=== PATIENT | female | born 1935 | race Asian ===

== ENCOUNTER → 2017-10-06 | Outpatient (CLI) | payer MEDICARE, BC, OTHER ==
[2017-10-06 14:58] LABS: INR 2.22; PROTHROMBIN TIME 25.4 SECONDS (12.4-14.5)
== END ==
LOC: M LAB 14:20
DX: Z79.01 Long term (current) use of anticoagulants (principal)
CPT/HCPCS: 85610

== ENCOUNTER → 2017-11-02 | Outpatient (CLI) | payer MEDICARE, BC, OTHER ==
[2017-11-02 14:45] LABS: INR 2.89; PROTHROMBIN TIME 31.5 SECONDS (12.4-14.5)
== END ==
LOC: M LAB 11:51
DX: Z79.01 Long term (current) use of anticoagulants (principal)
CPT/HCPCS: 85610

== ENCOUNTER → 2018-03-03 | Outpatient (CLI) | payer MEDICARE, BC, OTHER ==
[2018-03-03 10:16] LABS: BASO % 0.7 % (0.0-1.0); EOS # 0.1 10^3/uL (0.0-0.50); EOS % 3.2 % (0.0-3.0); HEMATOCRIT 36.4 % (36.0-47.0); IMMATURE GRANULOCYTE % 0.2 % (0-3.0); MEAN CORPUSCULAR HEMOGLOBIN 30.8 pg (27.0-33.0); MEAN CORPUSCULAR VOLUME 93.3 fl (80.0-96.0); MONO # 0.4 10^3/uL (0.0-0.8); NEUTROPHILS # 2.8 10^3/uL (1.8-7.7); NEUTROPHILS % 62.9 % (36.0-66.0); PLATELET COUNT, AUTOMATED 194 10^3/uL (150-450); WHITE BLOOD COUNT 4.4 10^3/uL (4.0-10.0)
[2018-03-03 11:11] LABS: VITAMIN B12 LEVEL 376 PG/ML (247-911)
[2018-03-03 11:12] LABS: ALBUMIN 3.9 GM/DL (3.2-5.2); ALBUMIN/GLOBULIN RATIO 1.08 (1.00-1.93); ALKALINE PHOSPHATASE 97 U/L (45-117); ALT/SGPT 29 U/L (12-78); ANION GAP 8 MEQ/L (8-16); AST/SGOT 40 U/L (7-37); BILIRUBIN,TOTAL 0.4 MG/DL (0.2-1.0); BLOOD UREA NITROGEN 16 MG/DL (7-18); CARBON DIOXIDE LEVEL 28 MEQ/L (21-32); CHLORIDE LEVEL 111 MEQ/L (98-107); CREATININE FOR GFR 0.76 MG/DL (0.55-1.30); FREE T4 0.95 NG/DL (0.76-1.46); GLOMERULAR FILTRATION RATE > 60.0 (>32); GLUCOSE, FASTING 94 MG/DL (70-100); POTASSIUM SERUM 4.2 MEQ/L (3.5-5.1); SODIUM LEVEL 147 MEQ/L (136-145); TOTAL PROTEIN 7.5 GM/DL (6.4-8.2)
== END ==
LOC: M LAB 09:53
DX: G31.84 Mild cognitive impairment of uncertain or unknown etiology (principal)
CPT/HCPCS: 84443

== ENCOUNTER 2018-10-28 18:13 | Inpatient (IN) | payer MEDICARE, BC, OTHER ==
[~2018-10-28] VITALS: Ht 144.8 cm; Wt 49.9 kg
[~2018-10-28 18:13] MED LIST: *BLDWK3; *MAMMOGRAM; /WARF3TA; /WARF4TA; BABY81CH; CALC600T10; COUMADIN PO; FLAG500T; HCTZ25 PO; HYDR25TA6; HYDROD25 PO; KDUR20 PO; LANO0.252; LANOXIN PO; LESCOL PO; LEVA500T; LOTREL; LOTREL PO; MACROBID PO; POTA20TA2; PROMETRIUM PO; TYLENOLCOD PO; VAGIFEM VAGINALLY; ZETI10TA; ZETIA PO; [UNRECOGNIZED DRUG - OTHER] transderma
[2018-10-28] MEDS ORDERED: AMLO5TAB6 (18:46)
[2018-10-28] MEDS ORDERED: VERA120C PO (18:46)
[2018-10-28] MEDS ORDERED: BENA40TA7 (18:46)
[2018-10-28] MEDS ORDERED: HYDR25TAB (18:46)
[2018-10-28 19:20] LABS: BASO % 0.5 % (0.0-1.0); EOS # 0.1 10^3/uL (0.0-0.50); EOS % 1.8 % (0.0-3.0); HEMATOCRIT 38.3 % (36.0-47.0); HEMOGLOBIN 12.5 g/dl (12.0-15.5); MEAN CORPUSCULAR HGB CONC 32.6 g/dl (32.0-36.5); MEAN CORPUSCULAR VOLUME 91.8 fl (80.0-96.0); MONO # 0.5 10^3/uL (0.0-0.8); MONO % 8.2 % (0.0-5.0); NEUTROPHILS # 4.4 10^3/uL (1.8-7.7); NEUTROPHILS % 73.2 % (36.0-66.0); PLATELET COUNT, AUTOMATED 242 10^3/uL (150-450); RED BLOOD COUNT 4.17 10^6/uL (4.00-5.40)
--- NOTE | 2018-10-28 19:24 | REP ---
CT Head without contrast HISTORY: Dizziness COMPARISON: 07/31/2008 Areas of decreased attenuation are present in the periventricular and subcortical white matter. This represents small-vessel ischemic disease. There is no intraparenchymal hemorrhage, acute infarct, mass or midline shift. The ventricular system and cortical sulci as well as subarachnoid space in the posterior fossa are dilated consistent with moderate volume loss. There is no extra cerebral collection. There is no fracture. The visualized sinuses are clear. IMPRESSION: 1. Small vessel ischemic disease. 2. Moderate volume loss. Electronically Signed by Ector Singer MD 10/28/2018 07:15 P
[2018-10-28] MEDS ORDERED: hydroCHLOROthiazide 25 MG TAB PO ONE (19:30)
[2018-10-28] MEDS ORDERED: amLODIPine 5 MG TAB PO ONE (19:30)
[2018-10-28] MEDS ORDERED: MECLIZINE 25 MG TABLET PO ONE (19:30)
[2018-10-28] MEDS ORDERED: BENAZEPRIL 20 MG TAB PO ONE (19:30)
--- NOTE | 2018-10-28 19:30 | REP ---
CT cervical spine without contrast HISTORY: Trauma COMPARISON: None A congenital block vertebra is present at the C2-3 level. There is no acute fracture or subluxation. Disc bulges are present at the C3-4 and C5-6 levels. Disc bulges with associated osteophyte formation are present at the C4-5 and C6-7 levels. There is minimal narrowing of the spinal canal. Uncinate process and/or facet hypertrophy are present at the C3-4 through C6-7 levels. These findings produce minimal to moderate narrowing of the neural foramina. The C4-5 through C6-7 intervertebral discs are decreased in height consistent with disc degeneration. IMPRESSION: 1. There is no acute fracture or subluxation. 2. There is cervical spondylosis at the C3-4 through C6-7 levels. Electronically Signed by Ector Singer MD 10/28/2018 07:21 P
--- NOTE | 2018-10-28 19:32 | REP ---
Chest two views HISTORY: Dizziness Comparison: 05/20/2017 The lungs are clear. The heart is normal in size. The pulmonary vasculature is normal in appearance. The bony structure is intact. IMPRESSION: No acute disease. Electronically Signed by Ector Singer MD 10/28/2018 07:23 P
[2018-10-28 19:34] LABS: INR 1.38; PROTHROMBIN TIME 17.2 SECONDS (12.1-14.4)
[2018-10-28 19:35] LABS: PARTIAL THROMBOPLASTIN TIME 28.7 SECONDS (25.4-37.6)
[2018-10-28 20:11] LABS: ALT/SGPT 36 U/L (12-78); BILIRUBIN,DIRECT < 0.1 MG/DL (0.0-0.2); BILIRUBIN,TOTAL 0.4 MG/DL (0.2-1.0); BLOOD UREA NITROGEN 12 MG/DL (7-18); CALCIUM LEVEL 9.1 MG/DL (8.8-10.2); CARBON DIOXIDE LEVEL 25 MEQ/L (21-32); CHLORIDE LEVEL 109 MEQ/L (98-107); CPK CREATINE PHOSPHOKINASE 213 U/L (26-192); DIGOXIN LEVEL 0.1 NG/ML (0.5-2.0); FREE T4 1.02 NG/DL (0.76-1.46); GLOMERULAR FILTRATION RATE > 60.0 (>32); GLUCOSE, FASTING 108 MG/DL (70-100); POTASSIUM SERUM 4.1 MEQ/L (3.5-5.1); SODIUM LEVEL 142 MEQ/L (136-145); TOTAL PROTEIN 7.5 GM/DL (6.4-8.2); TROPONIN I 0.04 NG/ML (< 0.10)
--- NOTE | 2018-10-28 21:03 | ECGEPIP ---
Stationary ECG Study [facility] - ED Test Date: 2018-10-28 Pat Name: FRANCESCA PAIZ Department: Room: - Gender: F Hand Packer: : [id number] Requested By: TRISH Lechuga Order Number: [id number] Reading MD: Jennifer Seaman Measurements Intervals [place] Rate: 90 P: PA: 0 QRS: 73 QRSD: 102 T: 27 QT: 387 QTc: 476 Interpretive Statements ATRIAL FIBRILLATION MODERATE ST DEPRESSION NO PRIOR FOR COMPARISON Electronically Signed On 10-28-2018 21:03:23 EST by Jennifer Seaman
[2018-10-28] MEDS ORDERED: HYDR25TAB PO (21:08)
[2018-10-28] MEDS ORDERED: WARF4TAB51 PO (21:08)
[2018-10-28] MEDS ORDERED: WARF4TAB52 PO (21:08)
[2018-10-28] MEDS ORDERED: BENA40TA7 PO (21:08)
[2018-10-28] MEDS ORDERED: AMLO5TAB6 PO (21:08)
[2018-10-28] MEDS ORDERED: BENA2CRE2 TOP (21:25)
[2018-10-28] MEDS ORDERED: D400400C PO (21:25)
[2018-10-28] MEDS ORDERED: XALA0.007 OU (21:25)
[2018-10-28] MEDS ORDERED: ASPE10LO EXT (21:25)
[2018-10-28] MEDS ORDERED: FOLITAB PO (21:25)
[2018-10-28] MEDS ORDERED: ASPIRIN 325 MG TAB PO ONE (21:30)
[2018-10-28] MEDS ORDERED: ACETAMINOPHEN TAB 650MG DOSE (2X325MG) PO PRN (21:30)
--- NOTE | 2018-10-28 22:52 | REPVR ---
EXAM: MR Head Without Contrast EXAM DATE/TIME: 10/28/2018 9:45 PM CLINICAL HISTORY: 83 years old, female; Signs and symptoms; Dizziness; Patient HX: Dizziness, images sent to [facility]; Additional info: CVA TECHNIQUE: MR of the head without contrast. COMPARISON: CT Head without contrast 10/28/2018 6:45 PM FINDINGS: Brain: There is age-appropriate volume loss. There is white matter hyperintense signal indicating chronic microvascular disease. There are small old basal ganglia lacunar infarcts. There are small old white matter lacunar infarcts. There is a small old left cerebellar lacunar infarct. DWI images demonstrate an infarct in the right posterior insular cortex extending over a length of 2 cm. Posterior to this there is a second cortical infarct involving the right posterior temporal cortex extending over a length of 2.5 cm. These infarcts measure 10 mm or less in width. Gradient echo images demonstrate no evidence of hemorrhage. There is no extra-axial collection. There is no mass. There are no abnormal flow voids. Ventricles: Ventricular size is proportionate to sulcal prominence. Bones/joints: Unremarkable. Soft tissues: Normal. Sinuses: Normal as visualized. No acute sinusitis. Mastoid air cells: Normal as visualized. No mastoid effusion. Orbits: Unremarkable. IMPRESSION: 1. 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 2. There are acute cortical infarcts involving the right insular cortex and right posterior temporal cortex. Electronically signed by: Esteban Carvajal On 10/28/2018 22:52:13 PM
--- NOTE | 2018-10-28 22:54 | REPVR ---
EXAM: MR Angiogram Head Without Contrast, Arteries EXAM DATE/TIME: 10/28/2018 9:45 PM CLINICAL HISTORY: 83 years old, female; Signs and symptoms; Dizziness and giddiness; Patient HX: Dizziness, images sent to [facility]; Additional info: CVA TECHNIQUE: MR angiogram head without contrast. Exam focused on the arteries. MIP reconstructed images were created and reviewed. COMPARISON: CT Head without contrast 10/28/2018 6:45 PM FINDINGS: Right internal carotid artery: Unremarkable. Intracranial segment is patent with no significant stenosis. No aneurysm. Right anterior cerebral artery: See Right Middle Cerebral Artery Finding. Right middle cerebral artery: There is critical stenosis right MCA M2 superior division branch 10 mm from its origin. This appears completely occluded on the MIP images. There is attenuated distal flow on the source images. Right posterior cerebral artery: There is severe stenosis or short segment occlusion over a 4 mm length of the P2 segment of the right posterior cerebral artery. Right vertebral artery: Unremarkable. No occlusion or significant stenosis. No aneurysm. Left internal carotid artery: Unremarkable. Intracranial segment is patent with no significant stenosis. No aneurysm. Left anterior cerebral artery: Unremarkable. No occlusion or significant stenosis. No aneurysm. Left middle cerebral artery: Unremarkable. No occlusion or significant stenosis. No aneurysm. Left posterior cerebral artery: Unremarkable. No occlusion or significant stenosis. No aneurysm. Left vertebral artery: Unremarkable. No occlusion or significant stenosis. No aneurysm. Basilar artery: Unremarkable. No occlusion or significant stenosis. No aneurysm. IMPRESSION: 1. Near occlusion of a right MCA M2 branch 10 mm from its origin. There is attenuated distal flow only seen on the source images. 2. 4 mm short segment occlusion or severe stenosis of the P2 segment of the right posterior cerebral artery. Electronically signed by: Esteban Carvajal On 10/28/2018 22:54:10 PM
--- NOTE | 2018-10-28 22:58 | REPVR ---
EXAM: US Bilateral Duplex Bilateral Extracranial Arteries EXAM DATE/TIME: 10/28/2018 10:34 PM CLINICAL HISTORY: 83 years old, female; Signs and symptoms; Other: Vertigo TECHNIQUE: Bilateral Real-time Duplex ultrasound scan of the carotid and vertebral arteries combining maurer scale, color Doppler and spectral waveform analysis. COMPARISON: CT Head without contrast 10/28/2018 6:45 PM FINDINGS: Right common carotid artery: Mild to moderate plaque. No occlusion or stenosis. Peak systolic velocity is 65 cm/s. Right internal carotid artery: . No occlusion or stenosis. Peak systolic velocity is 61 cm/s.. Right ICA/CCA ratio: 0.9, Within normal limits. Right external carotid artery: No stenosis in the origin. Peak systolic velocity is 55 cm/s. Right vertebral artery: Unremarkable. Antegrade flow Left common carotid artery: Mild to moderate plaque. No occlusion or stenosis. Peak systolic velocity is 86 cm/s. Left internal carotid artery: Mild/moderate plaque. No occlusion or stenosis. Peak systolic velocity is 67 cm/s. Left ICA/CCA ratio: 0.8 Within normal limits. Left external carotid artery: No stenosis in the origin. Peak systolic velocity is 89 cm/s. Left vertebral artery: Unremarkable. Antegrade flow. IMPRESSION: Mild/moderate bilateral carotid bifurcation plaque with no elevation of velocity is consistent with mild, less than 50%, stenosis. COMMENT: Carotid Stenosis Reference using SRU criteria: Mild: <50% stenosis. ICA PSV is less than 125 cm/second and plaque or intimal thickening is visible. Moderate: 50-69% stenosis. ICA PSV is 125 to 230 cm/second and plaque is visible. Severe: 70-94% stenosis. ICA PSV is more than 230 cm/second and visible plaque and lumen narrowing are seen. Near occlusion: 95-99% stenosis. ICA PSV is variable and significant plaque and luminal narrowing are seen. Occluded: 100% stenosis. No flow identified. Electronically signed by: Esteban Carvajal On 10/28/2018 22:58:05 PM
[2018-10-28] MEDS ORDERED: LABETALOL HCL 100 MG/20 ML VIAL IV ONE (23:00)
--- NOTE | 2018-10-28 23:04 | HPEPDOC ---
[facility] Medical History & Physical Date of Admission Oct 28, 2018 Other Provider Admitting/dictating:Reva Landeros M.D. Attending Physician: KEYA BARAJAS MD History and Physical CHIEF COMPLAINT: Lightheadedness/vertigo 2 days HISTORY OF PRESENT ILLNESS: Patient is an 83-year-old woman. She has medical history is significant for mitral valve disease, remote CT in the past, hyperlipidemia, hypertension, A. fib. He was in her usual state of health until about 3 days ago when she started having episodes of dizziness at the time on concerning, but symptoms have progressed to the point that she would need to hold onto objects in order to prevent from falling. As a result of this, she decided to seek further medical attention. Prior to this episodes, she denies any blurry vision, nausea, vomiting, no palpitations, no chest pains, no shortness of breath. No cough. She also denies noticing any fevers or chills. She denies any change in bowel or urinary habits. She denies any abnormal body movements. No lower extremity swellings or pains. No recent long distance travel. She was worked up in the emergency room with a CT scan of the head which was unremarkable, labs were also unremarkable. Hospitalist was called in to continue further management. PAST MEDICAL HISTORY: Per HPI PAST SURGICAL HISTORY: 1. Appendicectomy. 2. Mitral valve repair. 3. Cholecystectomy. SOCIAL HISTORY: Denies smoking, denies use of alcohol, denies illicit drug use. FAMILY HISTORY: No significant ischemic heart disease in the family. No diabetes. Mother was diagnosed with HTN. ALLERGIES: Please see below. REVIEW OF SYSTEMS: she denies any blurry vision, nausea, vomiting, no palpitations, no chest pains, no shortness of breath. No cough. She also denies noticing any fevers or chills. She denies any change in bowel or urinary habits. She denies any abnormal body movements. No lower extremity swellings or pains. Other systems reviewed and negative. 12 point review of system was done. HOME MEDICATIONS: Please see below. PHYSICAL EXAMINATION: VITAL SIGNS: Temperature 98, pulse 97, respiratory rate 16, blood pressure 191/88, pulse oximetry 94% on room air. GENERAL APPEARANCE: Elderly woman, lying calmly in bed, not in any apparent distress. He is not pale, anicteric and afebrile HEENT: Atraumatic. Neck: Supple. LUNGS: Clear to auscultation bilaterally. CARDIOVASCULAR: S1 and 2 heard, no murmurs, rubs or gallops. ABDOMEN: Obese, soft, not tender, not distended. Bowel sounds normoactive. MUSCULOSKELETAL: Apparently within normal limits. EXTREMITIES: No pedal edema, 2+ bilateral pedal pulses noted. NEUROLOGICAL: Awake, alert, oriented 3, moves all limbs, gait not tested. PSYCHIATRIC: Normal affect LABORATORY DATA: See below. IMAGING: Cervical spine CT: No acute fracture or subluxation. Cervical spondylopathy at C3-C4 through C6-C7. Head CT: Small vessel ischemic disease. Moderate volume loss. Chest x-ray: No acute disease. EKG: A. fib, heart rate [address] or T-wave changes. MICROBIOLOGY: Please see below. ASSESSMENT: 85-year-old woman with medical comorbid history as enumerated above, comes in with2 days of dizziness/vertigo so far, imaging workup no consistent with an acute stroke. But on account of A. fib. With an INR of 1.3. It's unclear if patient has been taking anticoagulation and cannot rule out stroke. At this time with a CT scan. Patient will be admitted to the PCU and for stroke workup. DIAGNOSES: 1. Vertigo may be benign paroxysmal positional vertigo. 2. Will rule out stroke (?Vertebrobasilar stroke) . PLAN: 1. I will admit patient to the PCU under care of Dr. Barajas. 2. I will also place patient on meclizine 12.5 mg 3 times a day 3. MRI brain, carotid Dopplers, echocardiogram. 4. We'll screen for diabetes. A1c in the morning. 5. Neurology consult placed to Dr. elenita Root. 6. Bedside swallow evaluation. 7. DVT prophylaxis, TEDs for now. 8. We'll allow for permissive hypertension for the next 24-48 hours. Systolic blood pressure. If greater than 180mmHg treat with BP medications. 9. Further management to be per patient's clinical course. Vital Signs Vital Signs Date Time Temp Pulse Resp B/P (MAP) Pulse Ox O2 Delivery O2 Flow Rate FiO2 10/28/18 21:01 191/88 (122) 10/28/18 21:00 97 94 10/28/18 20:47 Room Air 10/28/18 18:34 98.4 18 Laboratory Data Labs 24H Laboratory Tests 2 10/28/18 18:56: Immature Granulocyte % (Auto) 0.3, White Blood Count 6.0, Red Blood Count 4.17, Hemoglobin 12.5, Hematocrit 38.3, Mean Corpuscular Volume 91.8, Mean Corpuscular Hemoglobin 30.0, Mean Corpuscular Hemoglobin Concent 32.6, Red Cell Distribution Width 13.9, Platelet Count 242, Neutrophils (%) (Auto) 73.2H, Lymphocytes (%) (Auto) 16.0L, Monocytes (%) (Auto) 8.2H, Eosinophils (%) (Auto) 1.8, Basophils (%) (Auto) 0.5, Neutrophils # (Auto) 4.4, Lymphocytes # (Auto) 1.0L, Monocytes # (Auto) 0.5, Eosinophils # (Auto) 0.1, Basophils # (Auto) 0.0, Nucleated Red Blood Cells % (auto) 0.0, Prothrombin Time 17.2H, Prothromb Time International Ratio 1.38, Activated Partial Thromboplast Time 28.7, Anion Gap 8, Glomerular Filtration Rate > 60.0, Calcium Level 9.1, Aspartate Amino Transf (AST/SGOT) 49H, Alanine Aminotransferase (ALT/SGPT) 36, Alkaline Phosphatase 113, Total Bilirubin 0.4, Direct Bilirubin < 0.1, Total Creatine Kinase 213H, Creatine Kinase MB 3.0, Creatine Kinase MB Relative Index 1.50, Troponin I 0.04, Total Protein 7.5, Albumin 4.0, Albumin/Globulin Ratio 1.14, Thyroid Stimulating Hormone (TSH) 2.530, Free Thyroxine 1.02, Digoxin Level 0.1L CBC/BMP Laboratory Tests 10/28/18 18:56 Red Blood Count 4.17, Mean Corpuscular Volume 91.8, Mean Corpuscular Hemoglobin 30.0, Mean Corpuscular Hemoglobin Concent 32.6, Red Cell Distribution Width 13.9, Neutrophils (%) (Auto) 73.2 H, Lymphocytes (%) (Auto) 16.0 L, Monocytes (%) (Auto) 8.2 H, Eosinophils (%) (Auto) 1.8, Basophils (%) (Auto) 0.5, Neutrophils # (Auto) 4.4, Lymphocytes # (Auto) 1.0 L, Monocytes # (Auto) 0.5, Eosinophils # (Auto) 0.1, Basophils # (Auto) 0.0 Home Medications Scheduled (Folic Acid/B-6/B-12 0.4-50-0.1 mg) 1 Tab Tab, 1 TAB PO DAILY Amlodipine Besylate (Amlodipine Besylate) 5 Mg Tab, 5 MG PO DAILY Benazepril HCl (Benazepril HCl) 40 Mg Tab, 80 MG PO DAILY Cholecalciferol (Vitamin D3 400) 400 Unit Cap, 400 UNIT PO DAILY Hydrochlorothiazide (Hydrochlorothiazide) 25 Mg Tab, 25 MG PO DAILY Latanoprost (Xalatan) 0.005 % Wanda, 1 DROP OU QHS Warfarin Sod (Warfarin Sodium) 1 Mg Tab, 1 MG PO QPM TAKES AT 1700 Warfarin Sod (Warfarin Sodium) 2 Mg Tab, 2 MG PO QPM TAKES AT 1700 Scheduled PRN (Aspercreme) 10 % Lot, 1 DOSE EXT TID PRN for PAIN USES ON FOREARMS Diphenhydramine Hcl (Benadryl Extra Strength 2-0.1 %) 1 Cre Cre, 1 DOSE TOP QID PRN for RASH/ITCHING Allergies Coded Allergies: Tuberculin Purified Protein Derivat (Verified Allergy, Unknown, 12/26/12) REVA LANDEROS MD Oct 28, 2018 22:15
[2018-10-29 05:39] LABS: BASO % 0.5 % (0.0-1.0); EOS # 0.1 10^3/uL (0.0-0.50); EOS % 2.2 % (0.0-3.0); HEMATOCRIT 36.2 % (36.0-47.0); HEMOGLOBIN 11.7 g/dl (12.0-15.5); LYMPH # 1.3 10^3/uL (1.5-4.5); LYMPH % 21.4 % (24.0-44.0); MEAN CORPUSCULAR HEMOGLOBIN 29.2 pg (27.0-33.0); MEAN CORPUSCULAR HGB CONC 32.3 g/dl (32.0-36.5); MEAN CORPUSCULAR VOLUME 90.3 fl (80.0-96.0); MONO # 0.6 10^3/uL (0.0-0.8); MONO % 9.5 % (0.0-5.0); NEUTROPHILS % 66.1 % (36.0-66.0); PLATELET COUNT, AUTOMATED 218 10^3/uL (150-450); RED BLOOD COUNT 4.01 10^6/uL (4.00-5.40)
[2018-10-29 06:01] LABS: BLOOD UREA NITROGEN 11 MG/DL (7-18); CARBON DIOXIDE LEVEL 25 MEQ/L (21-32); CHLORIDE LEVEL 108 MEQ/L (98-107); CHOLESTEROL LEVEL 235 MG/DL (<200); CHOLESTEROL RISK RATIO 2.831 (<5); CREATININE FOR GFR 0.74 MG/DL (0.55-1.30); GLOMERULAR FILTRATION RATE > 60.0 (>32); GLUCOSE, FASTING 90 MG/DL (70-100); HDL CHOLESTEROL 83 MG/DL (>40); LDL CHOLESTEROL 129 MG/DL (<100); NON-HDL-C 152 MG/DL; SODIUM LEVEL 142 MEQ/L (136-145); TRIGLYCERIDES LEVEL 114 MG/DL (<150)
[2018-10-29 06:04] LABS: HEMOGLOBIN A1c 5.2 %
[2018-10-29 08:00] VITALS: BP 117/68
[2018-10-29] MEDS ORDERED: POTASSIUM CHLORIDE 10 MEQ SR TABLET PO ONE (08:15)
[2018-10-29] MEDS ORDERED: ASPIRIN 81 MG ENTERIC TAB PO SCH (09:00)
[2018-10-29] MEDS ORDERED: amLODIPine 5 MG TAB PO SCH (09:00)
[2018-10-29] MEDS ORDERED: hydroCHLOROthiazide 25 MG TAB PO SCH (09:00)
[2018-10-29] MEDS ORDERED: BENAZEPRIL 20 MG TAB PO SCH (09:00)
--- NOTE | 2018-10-29 09:20 | NUR ---
Pt seen for clinical swallow evaluation. Pt is without her upper and lower partials. Pt is chewing in the front of her mouth limiting proper mastication. Pt is aware of limitations. Recommend: Mechanical soft solids and thin liquids. Meds whole with liquid wash. Full upright position for all meals/snacks/meds. Addendum: 10/29/18 at 0921 by DENAE MCGEE GUI Amended: Links added.
[2018-10-29] MEDS: ATORVASTATIN 20 MG TAB PO SCH (09:52)
[2018-10-29] MEDS: ASPIRIN ENTERIC 325 MG TAB PO SCH (09:52)
[2018-10-29 12:00] VITALS: BP 130/74
[2018-10-29 15:40] VITALS: BP 141/82
--- NOTE | 2018-10-29 16:53 | IPNPDOC ---
Text Note Date of Service The patient was seen on 10/29/18. NOTE Subjective: He patient states she feels dizzy upon standing, even with physical therapy. Denies any headache. No chest pain. No shortness of breath. No palpitations. No new neurologic deficits. Objective: Vitals: (see below) General: No acute distress, laying comfortably in bed. HEENT: Moist mucous membranes. Neck: No JVD or lymphadenopathy Cardiac: RRR, No murmurs Pulm: Clear to auscultation b/l. No wheezing, rhonchi Abd: NT/ND + BS Ext: No edema or cyanosis Neuro: Strength 5/5 RUE/RLE. 4-5/5 LLE/LUE. CN 2-12 intact. F to N intact, however is tremulous Negative pronator drift. Alert and oriented 3. Labs (see below) Images: MRI brain on 10/28/18 IMPRESSION: 1. 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 2. There are acute cortical infarcts involving the right insular cortex and right posterior temporal cortex. MRA brain on 10/28/18 IMPRESSION: 1. Near occlusion of a right MCA M2 branch 10 mm from its origin. There is attenuated distal flow only seen on the source images. 2. 4 mm short segment occlusion or severe stenosis of the P2 segment of the right posterior cerebral artery. Assessment/Plan 1. Acute CVA/right MCA near occlusion/P2 stenosis of right [employer]- we'll allow for permissive hypertension., hold all blood pressure medications for now, and monitor. Goal systolic blood pressure less than 180. On aspirin/statin. P T/OT/ST. Neurology consulted. Echocardiogram pending. 2. History of atrial fibrillation- was on Coumadin at home, and although she notes that she is compliant, she lives alone, and her INR subtherapeutic. Discussed with Dr. Root, who will review the MRI brain, and determine the best timing for restarting anticoagulation. The family is agreeable to eliquis or xarelto as an alternative to Coumadin. Patient was not a fall risk and did not have any significant episodes of bleeding prior to presenting to the hospital. 3. History of mitral valve disease 4. Hypokalemia replaced. DVT prophy: SCDs I have discussed the case with family at bedside, and reviewed all labs, imaging, and the plan of care, and answered their questions to their satisfaction. They are aware that the patient is unlikely to go home and live alone. VS,Fishbone, I+O VS, Fishbone, I+O Laboratory Tests 10/28/18 18:56 Red Blood Count 4.17, Mean Corpuscular Volume 91.8, Mean Corpuscular Hemoglobin 30.0, Mean Corpuscular Hemoglobin Concent 32.6, Red Cell Distribution Width 13.9, Neutrophils (%) (Auto) 73.2 H, Lymphocytes (%) (Auto) 16.0 L, Monocytes (%) (Auto) 8.2 H, Eosinophils (%) (Auto) 1.8, Basophils (%) (Auto) 0.5, Neutrophils # (Auto) 4.4, Lymphocytes # (Auto) 1.0 L, Monocytes # (Auto) 0.5, Eosinophils # (Auto) 0.1, Basophils # (Auto) 0.0 10/29/18 05:06 Red Blood Count 4.01, Mean Corpuscular Volume 90.3, Mean Corpuscular Hemoglobin 29.2, Mean Corpuscular Hemoglobin Concent 32.3, Red Cell Distribution Width 14.0, Neutrophils (%) (Auto) 66.1 H, Lymphocytes (%) (Auto) 21.4 L, Monocytes (%) (Auto) 9.5 H, Eosinophils (%) (Auto) 2.2, Basophils (%) (Auto) 0.5, Neutrophils # (Auto) 4.0, Lymphocytes # (Auto) 1.3 L, Monocytes # (Auto) 0.6, Eosinophils # (Auto) 0.1, Basophils # (Auto) 0.0 Vital Signs Date Time Temp Pulse Resp B/P (MAP) Pulse Ox O2 Delivery O2 Flow Rate FiO2 10/29/18 15:40 98.7 64 18 141/82 (101) 99 10/29/18 03:05 Room Air I&O- Last 24 Hours up to 6 AM 10/29/18 06:00 Intake Total 0 ml Output Total 425 ml Balance -425 ml KEYA LI MD Oct 29, 2018 16:53
[2018-10-29 20:09] VITALS: BP 115/85
--- NOTE | 2018-10-29 21:27 | CR ---
DATE OF CONSULTATION: 10/29/2018 REFERRING PHYSICIAN: Jarrett Barajas MD REASON FOR CONSULTATION: Dizziness and vertigo. HISTORY OF PRESENT ILLNESS: Danyelle Cartwright is an 83-year-old woman with history of atrial fibrillation, myocardial infarction and history of mitral valve repair, although it sounds like from the patient and her daughter that she had mitral valve replaced with being on Coumadin since 1977 and has been taking her Coumadin regularly. The patient and her daughter state that she follows with her primary care physician who manages her INR and it was therapeutic when it was checked last time a month ago. She developed dizziness and vertigo 3 days ago, which worsened and the patient decided to seek medical attention. She denies any neck pain, back pain, headaches, numbness, weakness in her arms and legs, dysphagia, dysarthria, diplopia or urinary incontinence. The patient fell in her bathroom on Thursday. She has a cane or walker as needed at home for ambulation. She denies any loss of consciousness or head injuries. PAST MEDICAL HISTORY Atrial fibrillation, dyslipidemia, remote myocardial infarction, appendectomy, cholecystectomy, mitral valve repair. ALLERGIES: PPD HOME MEDICATIONS: - Coumadin 1 mg alternating with 2 mg by mouth daily - latanoprost eye drops - hydrochlorothiazide 25 mg by mouth in the morning - benazepril 40 mg, 2 tablets by mouth daily - amlodipine 5 mg by mouth daily - folic acid, vitamin B6, vitamin B12 1 tablet by mouth daily - vitamin D3 400 units by mouth daily SOCIAL HISTORY She denies smoking, alcohol or illicit drugs. FAMILY HISTORY: Mother had hypertension. REVIEW OF SYSTEMS All systems were reviewed and found to be noncontributory except as mentioned in history of present illness. PHYSICAL EXAMINATION Temperature 98, pulse 97, respiratory rate 18, blood pressure 191/88. Heart: Irregularly irregular. Lungs: Clear to auscultation. Abdomen: Soft, nontender, nondistended. No pedal edema. No musculoskeletal abnormalities. No rash. No signs of meningeal irritation. The patient is awake, alert, oriented to place, person and time. Normal speech, comprehension and repetition. Extraocular muscles are intact. No facial weakness. Tongue and uvula are midline. Visual leach are full to confrontation. Recent and distant memory is intact. There is no nystagmus. 5/5 strength in all four extremities. Deep tendon flexes 2+ throughout. Normal sensation. No dysmetria. Gait is mildly unsteady due to dizziness. DIAGNOSTIC STUDIES MRI scan of brain was reviewed and showed right insular cortex and parietal lobe ischemic stroke. MRA brain showed right middle cerebral artery and posterior cerebral artery severe stenosis. Carotid ultrasound showed less than 50% bilateral artery stenosis. LABORATORY DATA CBC and metabolic profile were within normal limits. LDL was 129 with total cholesterol 235. ASSESSMENT 1. Right insular cortex and parietal lobe acute ischemic stroke, likely embolic. 2. Severe focal stenosis of right middle cerebral artery and posterior cerebral artery. 3. Less than 50% bilateral carotid artery stenosis. 4. Atrial fibrillation and history of mitral valve repair or replacement, but it needs to be confirmed. PLAN: 1. We should confirm if the patient had mitral valve replacement or repair. This can change the ultimate choice of anticoagulant. 2. The patient did have mitral valve replacement. We can restart Coumadin and keep INR in therapeutic range. 3. Continue aspirin 325 mg p.o. daily and once she becomes therapeutic on Coumadin we can reduce aspirin dose to 81 mg by mouth daily. Physical and occupational therapy. 4. The patient should continue using a cane and walker and exercise fall precautions. 5. Lipitor 40 mg by mouth daily. 6. Consider cardiology consultation.
[2018-10-30] VITALS (7 sets, daily range): BP systolic 124–180; BP diastolic 65–80
[2018-10-30 05:32] LABS: HEMATOCRIT 36.3 % (36.0-47.0); HEMOGLOBIN 11.2 g/dl (12.0-15.5); MEAN CORPUSCULAR HEMOGLOBIN 28.9 pg (27.0-33.0); MEAN CORPUSCULAR HGB CONC 30.9 g/dl (32.0-36.5); MEAN CORPUSCULAR VOLUME 93.8 fl (80.0-96.0); PLATELET COUNT, AUTOMATED 215 10^3/uL (150-450); RED BLOOD COUNT 3.87 10^6/uL (4.00-5.40); WHITE BLOOD COUNT 5.5 10^3/uL (4.0-10.0)
[2018-10-30 06:06] LABS: BLOOD UREA NITROGEN 19 MG/DL (7-18); CALCIUM LEVEL 8.8 MG/DL (8.8-10.2); CARBON DIOXIDE LEVEL 28 MEQ/L (21-32); CHLORIDE LEVEL 109 MEQ/L (98-107); CREATININE FOR GFR 0.82 MG/DL (0.55-1.30); GLOMERULAR FILTRATION RATE > 60.0 (>32); GLUCOSE, FASTING 99 MG/DL (70-100); POTASSIUM SERUM 3.6 MEQ/L (3.5-5.1); SODIUM LEVEL 142 MEQ/L (136-145)
[2018-10-30] MEDS ORDERED: NS 1,000 ML IV SCH (08:00)
[2018-10-30 08:35] LABS: INR 1.32; PROTHROMBIN TIME 16.6 SECONDS (12.1-14.4)
[2018-10-30] MEDS: ASPIRIN ENTERIC 325 MG TAB PO SCH (08:40)
[2018-10-30] MEDS: ATORVASTATIN 20 MG TAB PO SCH (08:40)
[2018-10-30] MEDS ORDERED: PREVNAR 13 VACCINE SYRINGE (CPT CODE:90670) IM ONE (09:00)
--- NOTE | 2018-10-30 12:09 | IPNPDOC ---
Text Note Date of Service The patient was seen on 10/30/18. NOTE Subjective: Pt feels much improved. Denies CP/SOB/palpitations. No N/V/Abd pain. No new neuro deficits. Objective: Vitals: (see below) General: No acute distress, laying comfortably in bed. HEENT: Moist mucous membranes. Neck: No JVD or lymphadenopathy Cardiac: irregularly irregular, No murmurs Pulm: Clear to auscultation b/l. No wheezing, rhonchi Abd: NT/ND + BS Ext: No edema or cyanosis Neuro: Strength 5/5 RUE/RLE. 4-5/5 LLE/LUE. CN 2-12 intact. F to N intact, less tremulous today Negative pronator drift. Alert and oriented 3. Labs (see below) Images: MRI brain on 10/28/18 IMPRESSION: 1. 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 2. There are acute cortical infarcts involving the right insular cortex and right posterior temporal cortex. MRA brain on 10/28/18 IMPRESSION: 1. Near occlusion of a right MCA M2 branch 10 mm from its origin. There is attenuated distal flow only seen on the source images. 2. 4 mm short segment occlusion or severe stenosis of the P2 segment of the right posterior cerebral artery. Assessment/Plan 1. 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 Goal systolic blood pressure less than 180. On aspirin/statin. PT/OT/ST. Neurology consulted. Echocardiogram pending. Recommendations for restarting anticoagulation,and when INR therapeutic, decrease ASA to 81mg daily. 2. History of atrial fibrillation- was on Coumadin at home, and although she notes that she is compliant, she lives alone, and her INR subtherapeutic. Discussed with Dr. Root, recommends restarting anticoagulation now. Discussed with Dr. Grande as pt has MVR, with prior echo noting likely bioprosthetic valve, and he recommends coumadin only, with no consideration for eliquis/xarelto anticoagulants at this time. 3. History of mitral valve disease s/p MVR 4. Hypokalemia replaced. DVT prophy: SCDs I have discussed the case with family at bedside, and reviewed all labs, imaging, and the plan of care, and answered their questions to their satisfaction. They are aware that the patient is unlikely to go home and live alone. VS,Fishbone, I+O VS, Fishbone, I+O Laboratory Tests 10/30/18 04:51 Red Blood Count 3.87 L, Mean Corpuscular Volume 93.8, Mean Corpuscular Hem oglobin 28.9, Mean Corpuscular Hemoglobin Concent 30.9 L, Red Cell Distribution Width 14.2, Calcium Level 8.8 Vital Signs Date Time Temp Pulse Resp B/P (MAP) Pulse Ox O2 Delivery O2 Flow Rate FiO2 10/30/18 08:00 99.0 85 18 124/68 (86) 97 10/29/18 03:05 Room Air I&O- Last 24 Hours up to 6 AM 10/30/18 06:00 Intake Total 1320 ml Output Total 500 ml Balance 820 ml KEYA LI MD Oct 30, 2018 12:09
[2018-10-30] MEDS ORDERED: WARFARIN SOD 3 MG TAB PO SCH (17:00)
[2018-10-31] VITALS: BP 180/90
[2018-10-31 04:00] VITALS: BP 162/78
[2018-10-31 06:00] LABS: INR 1.29; PROTHROMBIN TIME 16.3 SECONDS (12.1-14.4)
[2018-10-31 07:58] LABS: HEMATOCRIT 34.9 % (36.0-47.0); MEAN CORPUSCULAR HEMOGLOBIN 29.6 pg (27.0-33.0); MEAN CORPUSCULAR HGB CONC 31.5 g/dl (32.0-36.5); MEAN CORPUSCULAR VOLUME 93.8 fl (80.0-96.0); PLATELET COUNT, AUTOMATED 207 10^3/uL (150-450); RED BLOOD COUNT 3.72 10^6/uL (4.00-5.40); WHITE BLOOD COUNT 7.1 10^3/uL (4.0-10.0)
[2018-10-31 08:00] VITALS: BP 177/81
[2018-10-31 08:23] LABS: BLOOD UREA NITROGEN 14 MG/DL (7-18); CALCIUM LEVEL 8.5 MG/DL (8.8-10.2); CARBON DIOXIDE LEVEL 25 MEQ/L (21-32); CHLORIDE LEVEL 111 MEQ/L (98-107); CREATININE FOR GFR 0.81 MG/DL (0.55-1.30); GLOMERULAR FILTRATION RATE > 60.0 (>32); GLUCOSE, FASTING 88 MG/DL (70-100); POTASSIUM SERUM 3.6 MEQ/L (3.5-5.1); SODIUM LEVEL 142 MEQ/L (136-145)
[2018-10-31] MEDS ORDERED: amLODIPine 5 MG TAB PO ONE ×2 (09:00→18:00)
[2018-10-31] MEDS: ATORVASTATIN 20 MG TAB PO SCH (09:09)
[2018-10-31] MEDS: ASPIRIN ENTERIC 325 MG TAB PO SCH (09:09)
--- NOTE | 2018-10-31 11:08 | IPNPDOC ---
Text Note Date of Service The patient was seen on 10/31/18. NOTE Subjective: Denies any complaints today. Denies CP/SOB/palpitations. No N/V/Abd pain. No new neuro deficits. Objective: Vitals: (see below) General: No acute distress, laying comfortably in bed. HEENT: Moist mucous membranes. Neck: No JVD or lymphadenopathy Cardiac: irregularly irregular, No murmurs Pulm: Clear to auscultation b/l. No wheezing, rhonchi Abd: NT/ND + BS Ext: No edema or cyanosis Neuro: Strength 5/5 RUE/RLE. 4-5/5 LLE/LUE. CN 2-12 intact. F to N intact Negative pronator drift. Alert and oriented 3. Labs (see below) Images: MRI brain on 10/28/18 IMPRESSION: 1. 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 2. There are acute cortical infarcts involving the right insular cortex and right posterior temporal cortex. MRA brain on 10/28/18 IMPRESSION: 1. Near occlusion of a right MCA M2 branch 10 mm from its origin. There is attenuated distal flow only seen on the source images. 2. 4 mm short segment occlusion or severe stenosis of the P2 segment of the right posterior cerebral artery. Assessment/Plan 1. 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 Goal systolic blood pressure less than 180. On aspirin/statin. PT/OT/ST. Neurology consulted. Echocardiogram pending. Recommendations for restarting anticoagulation,and when INR therapeutic, decrease ASA to 81mg daily. 2. History of atrial fibrillation- was on Coumadin at home, and although she notes that she is compliant, she lives alone, and her INR subtherapeutic. Discussed with Dr. Root, recommends restarting anticoagulation now. Discussed wit h Dr. Grande as pt has MVR, with prior echo noting likely bioprosthetic valve, and he recommends coumadin only, with no consideration for eliquis/xarelto anticoagulants at this time. Increase dose of Coumadin. 3. History of mitral valve disease s/p MVR 4. Hypokalemia replaced. DVT prophy: coumadin. I have discussed the case /plan with patient and daughter answered their questions to their satisfaction. They are aware that the patient is unlikely to go home and live alone. VS,Fishbone, I+O VS, Fishbone, I+O Laboratory Tests 10/31/18 04:49 Red Blood Count 3.72 L, Mean Corpuscular Volume 93.8, Mean Corpuscular Hemoglobin 29.6, Mean Corpuscular Hemoglobin Concent 31.5 L, Red Cell Distribution Width 14.0, Calcium Level 8.5 L Vital Signs Date Time Temp Pulse Resp B/P (MAP) Pulse Ox O2 Delivery O2 Flow Rate FiO2 10/31/18 09:10 74 177/81 10/31/18 08:00 97.7 20 94 10/29/18 03:05 Room Air I&O- Last 24 Hours up to 6 AM 10/31/18 06:00 Intake Total 1950 ml Output Total 2550 ml Balance -600 ml KEYA LI MD Oct 31, 2018 11:08
--- NOTE | 2018-10-31 11:30 | ECHO ---
DATE OF PROCEDURE: 10/29/2018 AGE: 83 GENDER: Female. Height 57 inches Weight 99 pounds Body surface area 1.34 m2 Location: Progressive care unit (PCU), room 3225 REFERRING PHYSICIAN: INDICATION: Abnormal electrocardiogram (EKG), atrial fibrillation, history of mitral valve disorder. MEASUREMENTS 2-D MEASUREMENTS: RV - 3.4 cm LV - 4.5 cm Septum 0.8 cm Posterior wall 0.8 cm Aortic root 2.6 cm LA - 4.8 cm LVEF 75% DOPPLER MEASUREMENTS: AV - 1.5 ms LVOT - 0.86 ms LVOT diameter 1.8 cm MV-E 157 Early mitral deceleration time 180 milliseconds E prime 6.6, E/E prime ratio 17.6 PV - 0.8 ms Pulmonary artery acceleration time 81 milliseconds PASP 42 mmHg IVC - 1.2 cm COMMENTS: Underlying atrial fibrillation with controlled ventricular response. No intraventricular conduction disturbance. Technically challenging study in light of the patient's body habitus but diagnostically useful information was still obtained. M-mode and two-dimensional echocardiography was performed with pulsed, continuous wave, color flow and tissue Doppler studies. Normal left ventricular size, wall thickness and hyperkinetic wall motion. Mildly dilated left atrium with current estimated mean left atrial pressure at least mildly increased. Normal right ventricular size and motion with Doppler sign of moderate pulmonary hypertension. Mildly dilated right atrium but normal IVC size and collapse against an elevated central venous pressure. Subtle aortic valvular sclerosis without functional abnormality. Normal aortic root size. Echogenic mitral annuloplasty ring with adequate leaflet excursion and no obvious posterior systolic buckling with at least mild - moderate insufficiency. Normal appearing tricuspid valve with moderately severe tricuspid insufficiency. No apparent intracardiac mass or pericardial effusion but if an intracardiac mass was to be ruled out we would recommend a transesophageal echocardiogram.
[2018-10-31] MEDS: BENAZEPRIL 20 MG TAB PO SCH (11:55)
[2018-10-31 12:00] VITALS: BP 154/88
[2018-10-31] MEDS ORDERED: POTASSIUM CHLORIDE 10 MEQ SR TABLET PO ONE (12:00)
[2018-10-31 16:00] VITALS: BP 158/80
[2018-10-31] MEDS ORDERED: SLF 3 ML SYR IV PRN (16:30)
[2018-10-31] MEDS ORDERED: WARFARIN SOD 5 MG TAB PO SCH (17:00)
[2018-10-31 20:00] VITALS: BP 142/67
[2018-10-31] MEDS: SLF 3 ML SYR IV SCH (22:00)
[2018-11-01] VITALS (9 sets, daily range): BP systolic 135–162; BP diastolic 62–72
[2018-11-01] MEDS: SLF 3 ML SYR IV SCH ×3 (04:18→21:32)
[2018-11-01 06:02] LABS: INR 1.89
[2018-11-01] MEDS: **hydrALAZINE** 10 MG TAB PO SCH ×2 (08:40→13:53)
[2018-11-01] MEDS ORDERED: amLODIPine 5 MG TAB PO SCH (09:00)
[2018-11-01] MEDS: MECLIZINE 12.5 MG TAB PO PRN (09:34)
[2018-11-01] MEDS: ATORVASTATIN 20 MG TAB PO SCH (09:34)
[2018-11-01] MEDS: ASPIRIN ENTERIC 325 MG TAB PO SCH (09:34)
[2018-11-01] MEDS: amLODIPine 10 MG TAB PO SCH (09:35)
[2018-11-01] MEDS: BENAZEPRIL 20 MG TAB PO SCH (09:36)
--- NOTE | 2018-11-01 14:35 | IPNPDOC ---
Text Note Date of Service The patient was seen on 11/01/18. NOTE Subjective: Denies CP/SOB/palpitations. No N/V/Abd pain. No new neuro deficits. Has dizziness with ambulation. Objective: Vitals: (see below) General: No acute distress, laying comfortably in bed. HEENT: Moist mucous membranes. Neck: No JVD or lymphadenopathy Cardiac: irregularly irregular, No murmurs Pulm: Clear to auscultation b/l. No wheezing, rhonchi Abd: NT/ND + BS Ext: No edema or cyanosis Neuro: Strength 5/5 RUE/RLE. 4-5/5 LLE/LUE. CN 2-12 intact. F to N intact Negative pronator drift. Alert and oriented 3. Labs (see below) Images: MRI brain on 10/28/18 IMPRESSION: 1. 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 2. There are acute cortical infarcts involving the right insular cortex and right posterior temporal cortex. MRA brain on 10/28/18 IMPRESSION: 1. Near occlusion of a right MCA M2 branch 10 mm from its origin. There is attenuated distal flow only seen on the source images. 2. 4 mm short segment occlusion or severe stenosis of the P2 segment of the right posterior cerebral artery. Assessment/Plan 1. 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 Goal systolic blood pressure less than 180. On aspirin/statin. PT/OT/ST. Neurology consulted. Echocardiogram pending. Recommendations for restarting anticoagulation,and when INR therapeutic, decrease ASA to 81mg daily. Coumadin dose titrated. 2. History of atrial fibrillation- was on Coumadin at home, and although she notes that she is compliant, she lives alone, and her INR subtherapeutic. Discussed with Dr. Root, recommends restarting anticoagulation now. Discussed with Dr. Grande as pt has MVR, with prior echo noting likely bioprosthetic valve, and he recommends coumadin only, with no consideration for eliquis/xarelto anticoagulants at this time. Increase dose of Coumadin. 3. History of mitral valve disease s/p MVR 4. Hypokalemia replaced. DVT prophy: coumadin. I have discussed the case /plan with patient and daughter answered their questions to their satisfaction. They are aware that the patient is unlikely to go home and live alone. PT/OT. ? Need for subacute rehab VS,Fishbone, I+O VS, Fishbone, I+O Vital Signs Date Time Temp Pulse Resp B/P (MAP) Pulse Ox O2 Delivery O2 Flow Rate FiO2 11/01/18 13:53 162/68 11/01/18 12:00 97.9 90 19 98 10/29/18 03:05 Room Air I&O- Last 24 Hours up to 6 AM 11/01/18 06:00 Intake Total 1290 ml Output Total 2290 ml Balance -1000 ml KEYA LI MD Nov 01, 2018 14:35
[2018-11-01] MEDS ORDERED: **hydrALAZINE HCL** 25 MG TAB PO ONE (15:00)
--- NOTE | 2018-11-01 16:06 | NUR ---
Pt discharged from speech therapy this date on mechanical soft diet and thin liquids. Please contact METAL STORAGE WORKER w/ any future questions or concerns. Addendum: 11/01/18 at 1606 by DONAL[facility] MONZON [facility] GUI Amended: Links added.
[2018-11-01] MEDS ORDERED: WARFARIN SOD 4 MG TAB PO SCH (17:00)
[2018-11-01] MEDS: **hydrALAZINE** 50 MG TAB PO SCH (21:32)
[2018-11-01] MEDS: LATANOPROST 0.005% OPHTH SOLN 2.5 ML OU SCH (21:32)
[2018-11-02] VITALS (8 sets, daily range): BP systolic 122–148; BP diastolic 58–78
[2018-11-02] MEDS: **hydrALAZINE** 50 MG TAB PO SCH ×3 (05:42→21:32)
[2018-11-02] MEDS: SLF 3 ML SYR IV SCH ×3 (05:42→21:32)
[2018-11-02 06:27] LABS: INR 2.54; PROTHROMBIN TIME 27.9 SECONDS (12.1-14.4)
[2018-11-02] MEDS: ASPIRIN 81 MG ENTERIC TAB PO SCH (08:48)
[2018-11-02] MEDS: amLODIPine 10 MG TAB PO SCH (08:48)
[2018-11-02] MEDS: ATORVASTATIN 20 MG TAB PO SCH (08:48)
[2018-11-02] MEDS: BENAZEPRIL 20 MG TAB PO SCH (08:48)
[2018-11-02] MEDS: MECLIZINE 12.5 MG TAB PO PRN (08:50)
[2018-11-02] MEDS ORDERED: WARFARIN SOD 3 MG TAB PO SCH (17:00)
[2018-11-02] MEDS: LATANOPROST 0.005% OPHTH SOLN 2.5 ML OU SCH (21:33)
--- NOTE | 2018-11-02 22:36 | IPN ---
DATE: 11/02/2018 Patient seen and examined. Continue to report lightheadedness. Continues to report dizziness with ambulation. No other complaint. Denies any chest pain, pressure or discomfort. Denies any other neurological deficit or weakness. Patient very anxious. VITAL SIGNS: Temperature 97.9, pulse 74, respirations 15, blood pressure 128/64, pulse ox 97% on room air. LABORATORY: WBC 7.1, hemoglobin and hematocrit 11/34.9, platelets 207. Chemistry: Sodium 142, potassium 3.6, chloride 111, bicarbonate 25, BUN 14, creatinine 0.81. PHYSICAL EXAMINATION: GENERAL: Patient alert, comfortable, in no acute distress. HEENT: Moist mucous membranes. NECK: Supple. CARDIAC: Irregularly irregular. No murmur detected. PULMONARY: Bilateral clear. ABDOMEN: Soft, nontender. EXTREMITIES: No clubbing, cyanosis or edema. NEUROLOGICAL: Symmetrical strength bilateral upper and lower extremities 5/5. Cranial nerves II-XII grossly intact. Finger to nose intact. ASSESSMENT AND PLAN: This is an 83-year-old female patient with underlying medical history of mitral valve disease, previous history of myocardial infarction (NH), hypertension, dyslipidemia, atrial fibrillation, was in her usual state of health presented with lightheadedness and dizziness for two days. Found to have stroke. PROBLEMS: 1. Acute cerebrovascular accident (CVA) with right MCA near occlusion and stenosis of right posterior cerebral artery. Neurology has been consulted. Physical therapy (PT)/occupational therapy (OT). Speech and swallow. Echo has been done. Patient currently on anticoagulation and aspirin as recommended by neurology. Followup INR. Family has been consulted. toll test desk worker has been consulted. 2. Atrial fibrillation. Patient on Coumadin. Patient lives alone at home. Case discussed with neurology. Discussed with Dr. Grande. Patient had mitral valve replacement with bioprosthetic valve. Recommend Coumadin only. Followup INR. Telemetry appreciated. 3. Hypertension. Continue Norvasc, benazepril, hydralazine, monitor blood pressures. 4. Dyslipidemia. Continue statin. 5. History of mitral valve disease. Status post mitral valve replacement with bioprosthetic valve. Continue Coumadin. 6. Hypokalemia. Resolved. 7. Deep venous thrombosis (DVT) prophylaxis. Patient on Coumadin. DISPOSITION: Pending PT/OT. Likely discharged in the next 24 hours.
[2018-11-03 04:45] VITALS: BP 155/72
[2018-11-03] MEDS: **hydrALAZINE** 50 MG TAB PO SCH (05:27)
[2018-11-03] MEDS: SLF 3 ML SYR IV SCH ×2 (05:27→14:00)
[2018-11-03 06:12] LABS: HEMOGLOBIN 10.9 g/dl (12.0-15.5); MEAN CORPUSCULAR HEMOGLOBIN 29.7 pg (27.0-33.0); MEAN CORPUSCULAR HGB CONC 32.1 g/dl (32.0-36.5); MEAN CORPUSCULAR VOLUME 92.6 fl (80.0-96.0); PLATELET COUNT, AUTOMATED 193 10^3/uL (150-450); RED BLOOD COUNT 3.67 10^6/uL (4.00-5.40); WHITE BLOOD COUNT 5.4 10^3/uL (4.0-10.0)
[2018-11-03 06:24] LABS: INR 3.35; PROTHROMBIN TIME 34.7 SECONDS (12.1-14.4)
[2018-11-03 06:38] LABS: BLOOD UREA NITROGEN 11 MG/DL (7-18); CALCIUM LEVEL 8.7 MG/DL (8.8-10.2); CARBON DIOXIDE LEVEL 27 MEQ/L (21-32); CHLORIDE LEVEL 109 MEQ/L (98-107); CREATININE FOR GFR 0.73 MG/DL (0.55-1.30); GLOMERULAR FILTRATION RATE > 60.0 (>32); GLUCOSE, FASTING 89 MG/DL (70-100); MAGNESIUM LEVEL 2.2 MG/DL (1.8-2.4); POTASSIUM SERUM 3.6 MEQ/L (3.5-5.1); SODIUM LEVEL 143 MEQ/L (136-145)
[2018-11-03] MEDS ORDERED: POTASSIUM CHLORIDE 10 MEQ SR TABLET PO ONE (07:45)
[2018-11-03 08:00] VITALS: BP 134/61
[2018-11-03] MEDS: ATORVASTATIN 20 MG TAB PO SCH (08:43)
[2018-11-03] MEDS: amLODIPine 10 MG TAB PO SCH (08:44)
[2018-11-03] MEDS: ASPIRIN 81 MG ENTERIC TAB PO SCH (08:44)
[2018-11-03] MEDS: BENAZEPRIL 20 MG TAB PO SCH (08:45)
[2018-11-03] MEDS: MECLIZINE 12.5 MG TAB PO PRN (09:34)
[2018-11-03] MEDS ORDERED: BENA20TA PO (10:58)
[2018-11-03] MEDS ORDERED: MECL12.575 PO (10:58)
[2018-11-03] MEDS ORDERED: ASPI81TAEC PO (10:58)
[2018-11-03] MEDS ORDERED: ATOR1TAB21 PO (10:58)
[2018-11-03] MEDS ORDERED: **hydrALAZINE HCL** 25 MG TAB PO SCH (14:00)
[2018-11-03 14:05] VITALS: BP 145/66
[2018-11-03] MEDS ORDERED: WARFARIN SOD 2 MG TAB PO SCH (17:00)
--- NOTE | 2018-11-03 20:56 | DSES ---
DATE OF ADMISSION: 10/28/2018 DATE OF DISCHARGE: 11/03/2018 PRIMARY CARE PROVIDER: Dr. Martin NEUROLOGIST: Dr. Root FINAL DIAGNOSES: Acute cerebrovascular accident (CVA) with right MCA near occlusion and stenosis of right posterior cerebral artery, vertigo, atrial fibrillation, hypertension, dyslipidemia, history of mitral valve disease, hypokalemia. HISTORY OF PRESENT ILLNESS: This is a 83-year-old female patient with underlying medical history of mitral valve disease, remote in the past, dyslipidemia, hypertension, atrial fibrillation. Patient was in her usual state of health until about 3 days prior to her admission when patient started having episodes of dizziness. At the time the symptoms have progressed to the point that patient will need to hold on to objects to prevent falling as a result patient decided to seek medical attention. Prior to this episode patient denies any blurry vision, nausea, vomiting, palpitations, chest pain, shortness of breath, no cough. Patient denies noticing any fevers or chills. She denies any change in bowel or urinary habits. Denies any abnormal body movements. No lower extremity swelling or pain. No recent long distance travel. Patient was worked up in the emergency room with CT head which was unremarkable. Hospitalists was called for admission for further workup. HOSPITAL COURSE: Patient admitted to the hospital and MRI was done. Urology was consulted. Patient was found to have stroke with significant cerebrovascular disease. Physical therapy and occupational therapy has been ordered as well as echocardiograms. smokehouse worker was consulted. Patient's condition progressively improved. Patient has passed physical therapy and occupational therapy and the family was willing to offer to be responsible for the care of the patient. Subsequently the patient was discharged home with home services. VITAL SIGNS: Temperature 98.1, pulse 91, respirations 18, blood pressure 145/66, pulse ox 98% on room air. LABORATORY: WBC 5.4, hemoglobin and hematocrit 10.9/34, platelets 193. Chemistry: Sodium 143, potassium 3.6, chloride 109, bicarbonate 27, BUN 11, creatinine 0.73. PHYSICAL EXAMINATION; GENERAL: Patient alert, comfortable in no acute distress. Moist mucous membrane. NECK: Supple. CARDIAC: Irregularly irregular. PULMONARY: Bilateral clear. ABDOMEN: Soft and nontender. EXTREMITIES: No clubbing, cyanosis or edema. DISCHARGE MEDICATION: Aspirin 81 mg by mouth daily, Lipitor 40 mg by mouth daily, Benazepril 40 mg by mouth daily, Meclizine 12.5 mg by mouth every 4 hours as needed, Norvasc 5 mg by mouth daily, Aspercreme lotion 1% external three times a day as needed, vitamin D 400 units by mouth daily, Benadryl topical four times a day as needed, folic acid, B6, B12 tablets by mouth daily, hydrochlorothiazide 25 mg by mouth daily, Xalatan optic solution, 0.005%, Coumadin 3 mg by mouth in the evening. DISCHARGE INSTRUCTIONS: Please see primary care provider in 7 days, please see urologist in 14 days for precaution, return if symptoms worsen. Further blood pressure management as per primary care provider, Coumadin dosing as per primary care provider, followup INR.
== END 2018-11-03 15:07 | disposition home health service (06) | DRG 66 ==
LOC: M ED 18:13 → M ED INP 21:20 → M PCU 10-29 03:20
PROVIDERS: ADMIT Hospitalist; ATTEND Hospitalist
DX: I63.511 Cerebral infarction due to unspecified occlusion or stenosis of right middle cerebral artery (principal); I63.531 Cerebral infarction due to unspecified occlusion or stenosis of right posterior cerebral artery; I48.91 Unspecified atrial fibrillation; I10 Essential (primary) hypertension; E78.5 Hyperlipidemia, unspecified; E87.6 Hypokalemia; Z79.899 Other long term (current) drug therapy; Z88.7 Allergy status to serum and vaccine; I25.2 Old myocardial infarction; Z79.01 Long term (current) use of anticoagulants

== ENCOUNTER → 2020-11-02 | Outpatient (CLI) | payer MEDICARE, BC, OTHER ==
[~2020-11-02] MED LIST changes: -/WARF3TA; -/WARF4TA; +AMLO1TAB24; +AMLO1TAB24 PO; +ASPE10LO EXT; +ASPI81TAEC PO; +ATOR1TAB21 PO; +BENA20TA PO; +BENA2CRE2 TOP; +BENA40TA5; +BENA40TA5 PO; +COUM1TAB14; +COUM1TAB19; +D400400C PO; +FOLITAB PO; +HYDR-3490; +HYDR-3490 PO; +MECL12.590 PO; +VERA120C PO; +WARF4TAB51 PO; +WARF4TAB52 PO; +XALA0.007 OU
--- NOTE | 2020-11-02 18:21 | REPVR ---
PROCEDURE INFORMATION: Exam: MR Angiography Neck Without Contrast Exam date and time: 11/02/2020 2:09 PM Age: 85 years old Clinical indication: Other: Occlusion and stenosis and cerebral throm TECHNIQUE: Imaging protocol: Magnetic resonance angiography of the neck without contrast. 3D rendering (Not supervised by radiologist): MIP and/or 3D reconstructed images were created by the technologist. COMPARISON: CT Spine,cervical w/o contrast 10/28/2018 6:45 PM FINDINGS: Right common carotid artery: No stenosis. No dissection or occlusion. Right internal carotid artery: No stenosis of the extracranial segment. No dissection or occlusion. Right external carotid artery: No stenosis. No dissection or occlusion of the origin. Right vertebral artery: No stenosis. No dissection or occlusion. Left common carotid artery: No stenosis. No dissection or occlusion. Left internal carotid artery: No stenosis of the extracranial segment. No dissection or occlusion. Left external carotid artery: No stenosis. No dissection or occlusion of the origin. Left vertebral artery: No stenosis. No dissection or occlusion. IMPRESSION: No stenosis or occlusion in the carotid and vertebral arteries of the neck. Normal study. REFERENCES: NASCET CRITERIA. The degree of internal carotid artery stenosis is based on NASCET criteria. Normal is no stenosis. Mild is less than 50% stenosis. Moderate is 50-69% stenosis. Severe is 70% to 99% stenosis. Total occlusion is no detectable patent lumen. Electronically signed by: Adonis Emmanuel On 11/02/2020 18:21:21 PM
--- NOTE | 2020-11-02 18:35 | REPVR ---
PROCEDURE INFORMATION: Exam: MR Angiogram Head Without Contrast, Arteries Exam date and time: 11/02/2020 2:09 PM Age: 85 years old Clinical indication: Other: Occlusion and stenosis and cerebral throm TECHNIQUE: Imaging protocol: MR angiogram head without contrast. Exam focused on the arteries. 3D rendering (Not supervised by radiologist): MIP and/or 3D reconstructed images were created by the technologist. COMPARISON: MRA BRAIN W/O CONTRAST 10/28/2018 9:34 PM FINDINGS: ANTERIOR CIRCULATION: Right internal carotid artery: Intracranial segment is patent with no significant stenosis. No aneurysm. Right middle cerebral artery: No occlusion. No aneurysm. There is a moderate grade 50-69% diameter stenosis present in the distal inferior branch of the M2 segment of the right middle cerebral artery, best seen on image 9 of series 705. Right anterior cerebral artery: No occlusion or significant stenosis. No aneurysm. Left internal carotid artery: Intracranial segment is patent with no significant stenosis. No aneurysm. Left middle cerebral artery: No occlusion or significant stenosis. No aneurysm. Left anterior cerebral artery: No occlusion or significant stenosis. No aneurysm. POSTERIOR CIRCULATION: Right vertebral artery: No occlusion or significant stenosis. No aneurysm. Left vertebral artery: No occlusion or significant stenosis. No aneurysm. Basilar artery: No occlusion or significant stenosis. No aneurysm. Right posterior cerebral artery: No aneurysm. There is a severe, greater than 90% diameter stenosis of the P2 segment of the right posterior cerebral artery. This is best seen on image 11 of series 704 and images 67 and 68 of series 701. Left posterior cerebral artery: No occlusion or significant stenosis. No aneurysm. IMPRESSION: 1. There is a moderate grade 50-69% diameter stenosis present in the distal inferior division branch of the M2 segment of the right middle cerebral artery, best seen on image 9 of series 705. The stenosis is approximately 1.5 cm distal to the bifurcation of the M1 segment. 2. There is a severe, greater than 90% diameter stenosis of the P2 segment of the right posterior cerebral artery. This is best seen on image 11 of series 704 and images 67 and 68 of series 701. Electronically signed by: Adonis Emmanuel On 11/02/2020 18:34:32 PM
== END ==
LOC: M PLARAD 11:28
PROVIDERS: ATTEND Psychiatry & Neurology Neurology
DX: R42 Dizziness and giddiness (principal); I65.23 Occlusion and stenosis of bilateral carotid arteries; I63.031 Cerebral infarction due to thrombosis of right carotid artery